=== PATIENT | female | born 1975 | race Caucasian/White ===

== ENCOUNTER 2020-03-21 07:51 | Emergency (ER) | payer SELFPAY ==
[2020-03-21 07:56] VITALS: BP 139/78; PULSE 88; RESP 16; TEMP 36.3; O2SAT 95; BMI 31.8
--- NOTE | 2020-03-21 08:04 | ED_ITS ---
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 Patient states her outbreaks always starts on the left shoulder near the axilla each time. Today she woke up with a burning pain, and a red rash. Since the rash has progressed to to have vesicles, some of these are broken patient states she has been rubbing her rash. complaint: Shingles Location: left and upper extremity Severity: moderate Severity scale (1-10): 4 Quality: burning and aching Pain Consistency: constant Relieving factors: none Exacerbating factors: none Associated symptoms: Reports no associated symptoms and rash Treatments prior to arrival: none Review of Systems General: Reports: 10 or more systems reviewed and unremarkable except in HPI and below Const: Denies: fever(s) or chills Eyes: Denies: change in vision Skin/Breast: Reports: rash and skin tenderness [facility] ED PFSH: Medical History Shingles outbreak Social History Smoking and tobacco status: heavy tobacco smoker Quit status (tobacco): has tried quititng Alcohol intake: never Substance/Drug Use: never Physical Exam Const: COMMON NORMALS: no acute distress, average body habitus and patient oriented x3 HENMT: COMMON NORMALS: normocephalic, atraumatic and Normal external nose present HEAD & SCALP: normal to inspection, normocephalic and atraumatic FACE & SINUS: normal facial exam NOSE: Normal external nose present MOUTH: Normal oral and palatal mucosa present Eye: COMMON NORMALS: Equal, round and reactive pupils present GENERAL EYE: appearance normal, both eyes and all related structures PUPIL: Yes Equal, round and reactive pupils present Neck/C-Spine: COMMON NORMALS: full ROM GENERAL: Yes normal visual inspection Lymph: LYMPHATIC: no lymphadenopathy noted Chest: COMMONS NORMALS: normal inspection of the chest Resp: COMMON NORMALS: normal respiratory effort, No retractions, No use of accessory muscles and clear to auscultation bilaterally EFFORT & INSPECTION: Yes able to speak in complete sentences and Yes symmetric chest movement AUSCULTATION: clear to auscultation bilaterally Cardio: COMMON NORMALS: S1 normal heart sound present and S2 normal heart sound present HEART SOUNDS: S1 normal heart sound present and S2 normal heart sound present GI: COMMON NORMALS: Normal to inspection, nondistended, normoactive bowel sounds present Extremity: COMMON NORMALS: normal to inspection, full ROM and no joint enlargement Neuro: COMMON NORMALS: patient oriented x3 Psych: COMMON NORMALS: mental status grossly normal, Normal thought process present and cooperative THOUGHT PROCESS: Normal thought process present Skin: SKIN IMAGES (FEMALE): 1. Vesicular rash Course Vital Signs: Vital signs: Vital Signs Temperature 97.3 F L 03/21/20 07:56 Pulse Rate 88 03/21/20 07:56 Respiratory Rate 16 03/21/20 07:56 Blood Pressure 139/78 03/21/20 07:56 Pulse Oximetry 95 03/21/20 07:56 MDM - General Adult MDM Narrative: Medical decision making narrative: Discussed recurrence of shingles. Will start of Valacyclovir plan to follow up with PCP. Discharge Plan Discharge Patient Disposition: Home, Self-Care Clinical Impression: Herpes zoster Qualifiers: Herpes zoster complications: without complications Qualified Code(s): B02.9 - Zoster without complications Condition: Stable Prescriptions: New acetaminophen 325 mg tablet 650 mg PO Q6H PRN (Reason: pain) 7 Days Qty: 30 RF: 0 ibuprofen 400 mg tablet 400 mg PO Q6H 7 Days Qty: 28 RF: 0 pramoxine-calamine 1-8 % lotion 1 applic TOPICAL QID PRN (Reason: itching) Qty: 177 RF: 0 valacyclovir 1 gram tablet 1,000 mg PO Q8H 7 Days Qty: 21 RF: 0 Discharge Orders: Discharge Order (Routine); Ordered 03/21/20 Ordered By: Michelle Medina Discharge Diet: Advance as tolerated Discharge Activity: Increase activity as tolerated Patient Instructions: Herpes Zoster (ED) Activity Restrictions/Additional Instructions: Follow up with Primary care provider next week. Coding Level of Care Code ED [employer] Fwd History Detailed Exam Comprehensive Medical Decision Making Moderate Complexity
== END 2020-03-21 08:46 | disposition home or self-care (01) ==
PROVIDERS: Emergency Provider Nurse Practitioner Family
DX: B02.9 Zoster without complications (principal); F17.210 Nicotine dependence, cigarettes, uncomplicated
CPT/HCPCS: 12345; 99281; 99282